=== PATIENT | female | born 1970 | race Caucasian/White ===

== ENCOUNTER 2019-01-10 10:20 | Emergency (ER) | payer OTHER ==
[~2019-01-10] VITALS: Ht 157.5 cm; Wt 83.9 kg
[2019-01-10 10:50] VITALS: Ht 157.5 cm; Wt 83.9 kg
[2019-01-10 16:26] VITALS: BP 127/88
== END 2019-01-10 16:29 | disposition home or self-care (01) ==
LOC: ED 10:20
DX: I10 Essential (primary) hypertension (principal)
CPT/HCPCS: J1885

== ENCOUNTER 2019-03-31 13:06 | Inpatient (IN) | payer OTHER ==
[~2019-03-31] VITALS: Ht 157.5 cm; Wt 84.0 kg
--- NOTE | 2019-03-31 13:15 | NUR ---
PT REPORTS COUGH X5 DAYS WITH BLOOD THIS AM, PT GIVEN MASK WHILE IN ED LOBBY, AWAITING ED ROOM.
--- NOTE | 2019-03-31 14:45 | NUR ---
PT PLACED ON FULL CM BY RODRIGO JACKSON.NAD NOTED.
--- NOTE | 2019-03-31 15:25 | NUR ---
200 CC OF BLOOD NOTED IN EMESIS BAG, PER PT "I JUST COUGHED THAT UP".
[2019-03-31 15:58] LABS: BASOPHIL % 1.3 % (0-2); PLATELET COUNT 162 x10^3mcL (130-400); RED CELL DISTRIBUTION WIDTH 15.4 % (11.5-14.5)
[2019-03-31 16:04] LABS: CALCIUM 8.3 mg/dL (8.5-10.1); CARBON DIOXIDE 23.7 mmol/L (21-32); CREATININE SERUM 1.1 mg/dL (0.6-1.0); POTASSIUM SERUM 4.4 mmol/L (3.5-5.1)
[2019-03-31 16:09] LABS: ALBUMIN 3.5 g/dL (3.4-5.0); BILIRUBIN TOTAL 1.39 mg/dL (0.20-1.00); TOTAL PROTEIN, SERUM 6.2 g/dL (6.4-8.2)
[2019-03-31] MEDS ORDERED: LISINOPRIL10 MG PO (17:05)
[2019-03-31] MEDS ORDERED: ALBUTEROL1.25 MG/3 NEB (17:06)
[2019-03-31] MEDS ORDERED: BREO ELLIPTA1 POW IH (17:06)
--- NOTE | 2019-03-31 17:26 | NUR ---
PT RESTING ON ED GURNEY, RESPS E/U, NAD NOTED, 100CC OF BLOOD NOTED IN EMESIS BAG, DR DIAZ MADE AWARE. PT'S FAMILY AT BEDSIDE.
[2019-03-31 18:25] VITALS: BP 161/103
--- NOTE | 2019-03-31 19:05 | NUR ---
REPORT RECEIVED FROM KELBY BUSBY,
--- NOTE | 2019-03-31 19:21 | NUR ---
REPORT GIVEN TO QI SPIVEY TO ASSUME CARE OF PT.
--- NOTE | 2019-03-31 19:25 | NUR ---
FIRST INITIAL CONTACT WITH PT. PT. LAYING IN BED, AAOX4, NO ACUTE DISTRESS NOTED, DENIES PAIN, STATES SHE HAS NOT VOMITTED IN 2 HOURS, PT. STATES SHE IS HUNGRY AND REQUESTING FOOD, PER DR. PARAS MORENO TO GIVE SANDWICH, PENDING ICU ROOM, SISTER AT BEDSIDE, AIRBORNE PRECAUTIONS IN PLACE, EXPLAINED THE IMPORTANCE OF WEARING A MASK, PT AND SISTER VERBALIZED UNDERSTANDING AND CURRENTLY WEARING MASK, WILL CONTINUE TO MONITOR,
--- NOTE | 2019-03-31 19:35 | NUR ---
ATTEMPTED TO GIVE REPORT TO MANAGER COMPLETIONS, STS THEY WILL CALL ED TO RECIEVE REPORT FOR PT. PATRIC BUSBY MADE AWARE.
--- NOTE | 2019-03-31 19:47 | NUR ---
REPORT GIVEN TO QI ALICIA TO ASSUME CARE OF PT.
--- NOTE | 2019-03-31 21:00 | NUR ---
RECEIVED PT FROM ER ACCOMPANIED BY SHRAVAN RN, AND DASHA EMT. PT AMBULATED TO ICU BED 10 WITH STABLE GAIT, ATTACHED TO FULL LOPPER AND CONTINUOUS PULSE OXIMETRY. AIRBORNE PRECUATIONS INTACT TO RULE OUT TB, PT AND FAMILY EDUCATED. RECEIVED PT AOX4 ABLE TO RESPOND TO COMMANDS, MAKE NEEDS KNOWN. GCS=15. PUPILS 4MM BRISK RESPONSE TO LIGHT B/L, PERRLA. SPEECH CLEAR, NO FACIAL DROOP NOTED.TRACHEA MIDLINE, NO DRAINAGE TO EENT. NO EENT COMPLAINTS.LUNG SOUNDS COARSE/RHONCHI TO RIGHT SIDE, CLEAR TO LEFT. CHEST RISE/FALL SYMMETRIC, E/U BREATHING, NO ACUTE RESP DISTRESS, DENIES SOB, ON ROOM AIR. PT HAS NOTED COUGH AND REPORTS IT WAS BLOODY, NONE NOTED AT THIS TIME. ON CONTINUOUS PULSE OXIMETRY.S1/S2 SOUNDS, NO S/S AND DENIES CHEST PAIN. ON FULL LOPPER.SKIN COLOR CONSISTENT WITH ETHNICITY, CAP REFILL <3 SEC X4, PULSES MODERATE X4 EXTREMITIES. EDEMA TO BLE.ROM ACTIVE, NO CONTRACTURES/DEFORMITIES, PT ABLE TO TURN AND REPOSITION SELF Q2H. NO JOINT SWELLING/TENDERNESS.ACTIVE BOWEL SOUNDS X4 QUADRANTS, ABD SOFT/ROUND, NONTENDER. NO BM AT THIS TIME. PT REPORTS BM THIS MORNING SOFT/BROWN. NO COMPLAINTS. PT ON 2GM SODIUM DIET, NO S/S OF N/V.PT HAS NOTED DOMINIC/BLOOD TINGED URINE, PT REPORTS BEING ON HER PERIOD. NO LABIAL EDEMA OR DISCHARGE NOTED. PT VOIDED 400 ML OF URINE.SKIN INTACT, WARM/DRY TO TOUCH. IV TO LEFT AC 20G, PORT PATENT, NO S/S OF INFILTRATION, DRESSING CDI, FROM ER. PT CALM/COOPERATIVE WITH CARE, FAMILY AT BEDSIDE UPDATED ON POC AND DISEASE PROCESS. BED AT LOWEST SETTING, CALL LIGHT WITHIN REACH, HOB ELEVATED 45 DEGREES PER PT COMFORT, WILL CONT TO MONITOR.
[2019-03-31 21:10] VITALS: BP 144/103
--- NOTE | 2019-03-31 21:13 | NUR ---
NORMAL SALINE GTT INITIATED @ 50 CC/HR PER MD ORDER.
--- NOTE | 2019-03-31 22:05 | NUR ---
ICU BED 10 MONITOR NOT CONNECTING TO FORM SETTER HELPER STATION MONITOR, ALPHONSO AND BRANDO NOTIFIED, PT TRANSFERRED TO ICU BED 8 FOR NOW, NO COMPLICATIONS ON TRANSFER, PT ATTACHED TO FULL DATA CONSULTANT AND CONTINUOUS PULSE OXIMETRY. AIRBORNE PRECAUTIONS INTACT.
--- NOTE | 2019-03-31 22:45 | NUR ---
PT HAD AN EPISODE HEMOPTOYSIS, PT HAD APPROX 100 CC OF BLOODY SECRETIONS, PROVIDED PT WITH EMESIS BAG. PT DENIES N/V AT THIS TIME AND PAIN. PT DENIES SOB. HOB ELEVATED HIGH FOWLERS. ALL COMFORT NEEDS MET.
[2019-03-31 23:02] VITALS: BP 126/97
--- NOTE | 2019-03-31 23:43 | NUR ---
NASAL CANNULA 2 LPM PLACED ON PATIENT AT THIS TIME, PT SATURATING @ 91% ON ROOM AIR, PT NOW SATURATING @ 95%. PT DENIES ANY SOB OR TROUBLE BREATHING. WILL CONT TO MONIOTR.
[2019-04-01 03:17] VITALS: BP 139/94
--- NOTE | 2019-04-01 03:28 | NUR ---
PT HAD AN EPISODE HEMOPTOYSIS, PT HAD APPROX 100 CC OF BLOODY SECRETIONS IN EMESIS BAG. PT DENIES N/V AT THIS TIME AND PAIN. PT DENIES SOB. HOB REMAINS AT HIGH FOWLERS. ALL COMFORT NEEDS MET.
--- NOTE | 2019-04-01 03:30 | NUR ---
ASSISTED PT TO BEDSIDE COMMODE, PT VOIDED 450 ML OF DOMINIC URINE.
--- NOTE | 2019-04-01 04:47 | NUR ---
RETAIL ACCOUNT SPECIALIST MADINA AT BEDSIDE FOR AM BLOOD DRAW.
[2019-04-01 05:22] LABS: BASOPHIL % 0.6 % (0-2); PLATELET COUNT 145 x10^3mcL (130-400)
[2019-04-01 05:38] LABS: RED CELL DISTRIBUTION WIDTH 14.9 % (11.5-14.5)
--- NOTE | 2019-04-01 07:10 | NUR ---
GAVE REPORT TO KARLA BUSBY. UPDATES PROVIDED, QUESTIONS ANSWERED. ENDORSED CARE.
[2019-04-01 07:45] VITALS: BP 143/95
[2019-04-01 09:46] LABS: C REACTIVE PROTEIN 0.8 mg/dL (<=0.9)
[2019-04-01 12:00] VITALS: BP 130/90
--- NOTE | 2019-04-01 12:08 | NUR ---
ECHOCARDIOGRAM PENDING-NOT IN ROOM
--- NOTE | 2019-04-01 13:24 | NUR ---
IV TO LAC STARTED CAUSING PAIN TO PT AND WAS LEAKING. LAC IV REMOVED, CATHETER TIP INTACT. NEW 20 G IV PUT INTO RIGHT FOREARM, FLUSHES, DOES NOT CAUSE PAIN TO PT. IV FLUID CONTINUED TO RFA IV.
[2019-04-01 14:42] LABS: AMPHETAMINE QUAL UR NONE DETECTED (See below)
--- NOTE | 2019-04-01 15:10 | NUR ---
PT COUGHING UP BLOOD AT THIS TIME, RN NOTIFIED BY DIRECTOR VOICE THAT JUST COMPLETED ECHO.
--- NOTE | 2019-04-01 15:20 | NUR ---
PT STATED THAT WHEN THE EXECUTIVE PRODUCER PROMOS PRESSED THE US WAND ON HER MIDEPIGASTRIC AREA, THAT IS WHEN SHE FELT THE NEED TO COUGH AND THAT AT THAT TIME IS WHEN SHE STARTED COUGHING UP BLOOD.
--- NOTE | 2019-04-01 15:53 | NUR ---
CLIENT PORTFOLIO MANAGER CALLED RN. STATED THAT SHE CALLED DR. GILBERT TO REPORT ECHO FINDINGS, AND DR. GILBERT SAID THAT HE HASN'T BEEN CONSULTED ON THIS PT OF YET. WILL OBTAIN CARDIOLOGY CONSULT.
--- NOTE | 2019-04-01 17:30 | NUR ---
RETURNED TO UNIT WITH PT FROM CT PULMONARY ANGIO. PT TOLERATED TRANSPORT WELL, AWAITING RESULTS TO BE READ.
--- NOTE | 2019-04-01 18:19 | NUR ---
THE RADIOLOGIST JUST CALLED BACK RE: THE PULMONARY CT ANGIOGRAPH THAT THE PT HAD. THE RADIOLOGIST SAID HE WANTED TO UPDATE DR. CRAIN ON THE FINDINGS SO THE RN PROVIDED HIM WITH DR. CRAIN'S PHONE NUMBER. QUESTIONS ADDRESSED, UPDATES PROVIDED.
--- NOTE | 2019-04-01 19:14 | NUR ---
SPOKE WITH DR. BUSH TO FOLLOW UP ON CT ANGIO RESULTS AND STATED THAT IT APPEARS TO BE VASCULITIS. STATED NO FURTHER ORDERS AT THIS TIME JUST CONTINUE TO MONITOR AND IF PT COUGHS UP A LOT OF BLOOD SHE MAY NEED TO BE INTUBATED. NOC PRIMARY RN AND NOC OFFICE MACHINE INSTALLER MADE AWARE OF THE ABOVE.
[2019-04-01 19:30] VITALS: BP 145/96
--- NOTE | 2019-04-01 19:30 | NUR ---
REC'D REPORT FROM TALIA BUSBY TO ASSUME CARE. PT A/O X4. SPEECH CLEAR AND APPROPRIATE. PERRLA NOTED. EENT FREE OF DISCHARGE. RESPS E/U ON ROOM AIR, O2 SAT 95%. CHEST RISE EQUAL AND SYMMETRICAL. LUNG SOUNDS RIGHT LUNG DIM, LEFT LUNG CLEAR TO AUSCULTATE. STORE RECEIVER IN PLACE. SHOWING NSR WITH HR 98. BP 145/96 MAP 110. CHEST WALL STABLE. DENIES ANY CP, SYNCOPE, OR DIZZINESS. PULSES PALPABLE X4. CAP REFILL < 3 SECS. BLE TRACE EDEMA NOTED. IV TO RFA G 20 INTACT AND PATENT, IVF NS INFUSING @ 50ML/HR. ACTIVE ROM X4. ABLE TO MOVE ALL EXT WITHOUT DIFFICULTY. ABD SOFT, NONDISTENDED. DENIES ANY N/V/D. VOIDS FREELY, BSC AT BEDSIDE. SKIN INTACT. CALM AND COOPERATIVE. POSITIVE FAMILY SUPPORT AT BEDSIDE. ALL NEEDS MET AT THIS TIME. CALL LIGHT WITHIN REACH. WILL CONTINUE TO MONITOR.
--- NOTE | 2019-04-01 21:00 | NUR ---
PT ASSISTED TO BSC TO VOID. BLOOD TINGED URINE NOTED D/T MENSTRUATION.
--- NOTE | 2019-04-01 22:00 | NUR ---
PT PLACED ON O2 2LPM VIA NC, PTS O2 SAT 93%.
--- NOTE | 2019-04-02 01:22 | NUR ---
PT ASSISTED TO BSC TO VOID.
[2019-04-02 03:08] VITALS: BP 132/94
--- NOTE | 2019-04-02 05:15 | NUR ---
PT ASSISTED TO BSC TO VOID. DENIES ANY URINARY SYMPTOMS.
[2019-04-02 05:34] LABS: BASOPHIL % 0.7 % (0-2)
[2019-04-02 05:35] LABS: PLATELET COUNT 122 x10^3mcL (130-400); RED CELL DISTRIBUTION WIDTH 15.5 % (11.5-14.5)
[2019-04-02 09:09] LABS: RHEUMATOID ARTHRITIS FACTOR <10.0 IU/mL (0.0-13.9)
[2019-04-02 09:16] VITALS: Ht 157.5 cm; Wt 84.0 kg
--- NOTE | 2019-04-02 09:26 | NUR ---
0800 pt recieved alert oriented x3, follows commands, pt denies having any hemoptysis as of last night or now, pt v/s stable though bp elevated, pt states did not vomit blood since she has been here and pt afebrile at this time, pt breath sounds clear all lobes, pt 02 sat 98% on 2l nc/pt in zero apparent distress//mw
--- NOTE | 2019-04-02 11:01 | NUR ---
RECIEVED CALL FROM DR. BOWEN FOR ORDERS TO DC THE AZITHROMYCIN. WILL FOLLOW AND MAKE QI DRAKE AWARE. WILL CONTINUE TO MONITOR.
--- NOTE | 2019-04-02 11:58 | NUR ---
[id number] carlos who stopped airborne isolation for patient//pt made aware as well//mw
[2019-04-02 12:03] VITALS: BP 140/101
[2019-04-02 17:44] VITALS: BP 142/80
== END 2019-04-02 19:15 | disposition short-term general hospital (02) | DRG 158 ==
LOC: ED 13:06 → IC 17:59
PROVIDERS: Emergency Medicine; ADMIT Internal Medicine Pulmonary Disease
DX: K08.89 Other specified disorders of teeth and supporting structures (principal); R04.2 Hemoptysis; I24.8 Other forms of acute ischemic heart disease; I10 Essential (primary) hypertension; J45.909 Unspecified asthma, uncomplicated; I27.20 Pulmonary hypertension, unspecified; R09.02 Hypoxemia; Z79.899 Other long term (current) drug therapy
CPT/HCPCS: 36600; 83880; 86431; 87116; 87206; G0378; J0456; J0696; J2405; J7030; Q0092; Q9967